=== PATIENT | male | born 1960 | race Caucasian/White ===

== ENCOUNTER 2020-07-31 17:00 | Emergency (ER) | payer SELFPAY ==
--- NOTE | 2020-07-31 17:30 | ER Document Report ---
ED Medical Screen (RME) - General Chief Complaint: Psych Problem Stated Complaint: ANXIOUS,DEPRESSED Time Seen by Provider: 07/31/20 17:25 Notes: HPI: 60-year-old male who reports no prior medical problems other than depression which is an on again off again issue presenting for 2 to 3 months of feeling progressively depressed and anxious. Patient states in the last 2 weeks he has not wanted to leave the house. He is had intermittent thoughts of driving his car off a bridge or walking into the [place] and just keeping on walking. Patient then denies that he would actually harm himself. He denies homicidal ideation. States he has been on medication for depression in the past is not on any medication currently PHYSICAL EXAMINATION: Patient does have a depressed affect. Patient repeatedly denies that he would actually harm himself but does admit to having intermittent thoughts of doing so I have greeted and performed a rapid initial assessment of this patient. A comprehensive ED assessment and evaluation of the patient, analysis of test results and completion of medical decision making process will be conducted by an additional ED providers. - Related Data Allergies/Adverse Reactions: No Known Allergies Allergy (Unverified 07/31/20 17:21) Past Medical History - Social History Chew tobacco use (# tins/day): No Frequency of alcohol use: None Drug Abuse: None Physical Exam - Vital signs Vitals: Temp Pulse Resp BP Pulse Ox 98.3 F 86 18 147/93 H 97 07/31/20 17:10 07/31/20 17:10 07/31/20 17:10 07/31/20 17:10 07/31/20 17:10 Course - Vital Signs Vital signs: Temp Pulse Resp BP Pulse Ox 98.3 F 86 18 147/93 H 97 07/31/20 17:10 07/31/20 17:10 07/31/20 17:10 07/31/20 17:10 07/31/20 17:10
[2020-07-31 19:02] LABS: ABSOLUTE EOSINOPHILS # (AUTO) 0.1 10^3/uL (0.0-0.6); ABSOLUTE LYMPHOCYTES (AUTO) 2.1 10^3/uL (0.5-4.7); ABSOLUTE MONOCYTES (AUTO) 0.5 10^3/uL (0.1-1.4); ABSOLUTE NEUT (AUTO) 5.4 10^3/uL (1.7-8.2); BASOPHILS % (AUTO) 0.2 % (0-2); EOSINOPHILS % (AUTO) 0.7 % (0-6); HEMATOCRIT 46.3 % (37.9-51.0); MEAN CORPUSCULAR HEMOGLOBIN 32.5 pg (27.0-33.4); MEAN CORPUSCULAR HGB CONC 34.7 g/dL (32.0-36.0); MEAN CORPUSCULAR VOLUME 94 fl (80-97); MONOCYTES % (AUTO) 6.2 % (3-13); PLATELET COUNT 144 10^3/uL (150-450); RED BLOOD COUNT 4.94 10^6/uL (4.35-5.55); RED CELL DISTRIBUTION WIDTH 12.6 % (11.5-14.0); SEGMENTED NEUTROPHILS % (AUTO) 66.9 % (42-78); TOTAL CELLS COUNTED % (AUTO) 100 %; WHITE BLOOD COUNT 8.1 10^3/uL (4.0-10.5)
[2020-07-31 19:25] LABS: ALBUMIN 4.7 g/dL (3.5-5.0); ALKALINE PHOSPHATASE 78 U/L (38-126); ANION GAP 5 (5-19); ASPARTATE AMINO TRANSFERASE 27 U/L (17-59); BILIRUBIN,DIRECT 0.1 mg/dL (0.0-0.4); BILIRUBIN,TOTAL 0.5 mg/dL (0.2-1.3); BLOOD UREA NITROGEN 12 mg/dL (7-20); CALCIUM 9.8 mg/dL (8.4-10.2); CARBON DIOXIDE 26 mmol/L (22-30); CHLORIDE 105 mmol/L (98-107); GLUCOSE 96 mg/dL (75-110); POTASSIUM 4.1 mmol/L (3.6-5.0); TOTAL PROTEIN 7.5 g/dL (6.3-8.2)
--- NOTE | 2020-07-31 19:26 | PSYCHOLOGICAL NOTE ---
Psych Note - Psych Note Date seen by psych provider: 07/31/20 Time seen by psych provider: 18:10 - 1825 Psych Note: Reason for Consult:Anxiety, Depression Consent Permissions:none provided Patient arrived to [facility] ED via pov for concerns of anxiety, depression and not sleeping. Patient reports that he recently moved from [place] to [place] for a job. He continued to disclose he is at increased stress which is caused anxiety, sleeping issues, cluster migraines and vertigo. He reports the last time he had this happen to him was about 15 years ago where got to the point it was so bad he started to hallucinate. Patient reports that he did not want to wait until he got that bad so came to [facility] ED in the hope of getting on medication. He reports that last time medication helped him. Patient denies wanting to stating that he is "not wired that way." He reports that he has had passing thoughts that quickly leave him such as "I could just ladle puller at this bridge." Patient states he has more thoughts of going into the [place] and becoming hermit when he is very stressed. Patient is alert and orientated to person, place, time and circumstance. Mood is dysphoric with blunted affect. Patient denies suicidal and homicidal ideations. Delusions are absent and behaviors congruent with an intact reality based presentation i.e. organized and linear thought process. Eye contact is well maintained. Conversational speech is within normal rate, tone and prosody. Intellectual ability appears to be within the average range. Attention and concentration is currently good. Insight, judgment, impulse control appears to be good due to patient recognizing symptoms and coming in due to not wanting it to get significantly worse which he identified occurred 15 years ago. IVC Criteria per [place] GS 122C Dangerous to others Within the relevant past the individual No has inflicted or attempted to inflict or threatened to inflict serious bodily harm on another AND No that there is a reasonable probability that this conduct will be repeated as there is an absence of supervision or structure to prevent. OR No has acted in such a way as to create a substantial risk of serious bodily harm to another AND No that there is a reasonable probability that this conduct will be repeated as there is an absence of supervision or structure to prevent. OR No has engaged in extreme destruction of property AND NO that there is a reasonable probability that this conduct will be repeated as there is an absence of supervision or structure to prevent. Previous episodes of dangerousness to others, when applicable, may be considered when determining reasonable probability of future dangerous conduct. Clear, cogent, and convincing evidence that an individual has committed a homicide in the relevant past is prima facie evidence of dangerousness to others. Dangerous to self Within the relevant past the individual has done any of the following: acted in such a way as to show ALL of the following: No The individual would be unable without care, supervision, and the continued assistance of others not otherwise available, to exercise self- control, judgment, and discretion in the conduct of the individual's daily responsibilities and social relations or to satisfy the individual's need for nourishment, personal or medical care, residential, or self-protection and safety. AND No There is a reasonable probability of the individual suffering serious physical debilitation within the near future unless adequate treatment is given. A showing of behavior that is grossly irrational, of actions that the individual is unable to control, of behavior that is grossly inappropriate to the situation, or of other evidence of severely impaired insight and judgment shall create a prima facie inference that the individual is unable to care for himself or herself. OR No has attempted suicide or threatened suicide AND No that there is a reasonable probability of suicide unless adequate treatment is given as there is an absence of supervision or structure to prevent suicide of patient who has made an attempt, serious gesture or threat. Patient had vague suicidal ideation comment; denies spring means or intent. Reports he thinks about going into the [place] and becoming a hermit. Patient reports random thoughts of pulling over on a bridge with pop into his head briefly, but denies he would ever harm himself; "I am just not wired that way." OR No has mutilated himself or herself or attempted to mutilate himself or herself AND No that there is a reasonable probability of serious self-mutilation unless adequate treatment is given as there is an absence of supervision or structure to prevent. NOTE: Previous episodes of dangerousness to self, when applicable, may be considered when determining reasonable probability of physical debilitation, suicide, or self-mutilation. Medication recommendations per [facility] contracted psychiatrist are as follows: Zyprexa 2.5mg twice daily Impression\\plan: Patient is cleared from acute psychiatric services. Patient is requesting assistance in controlling his breast which is cause increase in anxiety sleeping issues cluster migraines and events of vertigo. Patient reports he has had 1 previous episode 15 years ago which resulted in hallucinations and did not want to wait until he got that bad. Patient is requesting assistance with medication; medication recommendations have been provided. Patient is new to the area and is unaware of what resources are available. Patient has been provided a local resource list of area providers including [facility]'s crisis center and mobile crisis contact information. Patient was also provided local resource list of socioeconomic programs. Patient reports he has no concerns with current plan of care and confirms he will return if new symptoms occur or current symptoms worsen. Patient is recommended to follow-up with outpatient mental health services in 3 to 5 days for both medi cation management therapeutic services. Dr. Bah was consulted to care management of this patient; attending physicians in agreement with recommendations and disposition.
[2020-07-31 19:39] LABS: ACETAMINOPHEN < 10 ug/mL (10-30); ALCOHOL < 10 mg/dL (NONE DETECTED); SALICYLATE < 1.0 mg/dL (2.0-20.0)
[2020-07-31 19:59] LABS: APPEARANCE,URINE CLEAR; BILIRUBIN,URINE NEGATIVE (NEGATIVE); COLOR,URINE STRAW; GLUCOSE, URINE NEGATIVE (NEGATIVE); KETONES,URINE NEGATIVE (NEGATIVE); LEUKOCYTE ESTERASE,URINE NEGATIVE (NEGATIVE); NITRITE,URINE NEGATIVE (NEGATIVE); PROTEIN,URINE NEGATIVE (NEGATIVE); URINE SPECIFIC GRAVITY 1.006; UROBILINOGEN,URINE NEGATIVE mg/dL (<2.0)
[2020-07-31] MEDS ORDERED: OLANZAPINE 2.5 MG TABLET PO ONE (20:16)
[2020-07-31 20:22] LABS: URINE AMPHETAMINES SCREEN NEGATIVE; URINE BENZODIAZEPINES SCREEN NEGATIVE; URINE COCAINE SCREEN NEGATIVE; URINE MARIJUANA (THC) SCREEN NEGATIVE; URINE METHADONE SCREEN NEGATIVE; URINE PHENCYCLIDINE SCREEN NEGATIVE
--- NOTE | 2020-07-31 20:22 | ER Document Report ---
ED General <PATRICK STATON - Last Filed: 07/31/20 20:27> - General Mode of Arrival: Ambulatory Information source: Patient <GERONIMO MARINO - Last Filed: 08/01/20 00:21> - General Chief Complaint: Psych Problem Stated Complaint: ANXIOUS,DEPRESSED Time Seen by Provider: 07/31/20 17:25 Primary Care Provider: [facility] [Outside] - Follow up in 3-5 days [facility] [Outside] - Follow up as needed Notes: This 60-year-old male presents to the emergency department with a complaint of severe anxiety. He states that he has had a history of anxiety in the past but over the past few weeks it has been overwhelming and debilitating. He denies homicidal or suicidal ideation and has presented to the emergency department for medical treatment of the anxiety. (TANYAGERONIMO) - Related Data Allergies/Adverse Reactions: No Known Allergies Allergy (Unverified 07/31/20 17:21) Past Medical History - Social History Smoking Status: Current Every Day Smoker Chew tobacco use (# tins/day): No Frequency of alcohol use: None Drug Abuse: None Family History: Reviewed & Not Pertinent Patient has homicidal ideation: No <GERONIMO MARINO - Last Filed: 08/01/20 00:21> Review of Systems <GERONIMO MARINO - Last Filed: 08/01/20 00:21> - Review of Systems Notes: Constitutional: Negative for fever. HENT: Negative for sore throat. Eyes: Negative for visual changes. Cardiovascular: Negative for chest pain. Respiratory: Negative for shortness of breath. Gastrointestinal: Negative for abdominal pain, vomiting or diarrhea. Genitourinary: Negative for dysuria. Musculoskeletal: Negative for back pain. Skin: Negative for rash. Neurological: Negative for headaches, weakness or numbness. Psychiatric see HPI 10 point ROS negative except as marked above and in HPI. (GERONIMO MARINO) Physical Exam <GERONIMO MARINO - Last Filed: 08/01/20 00:21> - Vital signs Vitals: Temp Pulse Resp BP Pulse Ox 98.3 F 86 18 147/93 H 97 07/31/20 17:10 07/31/20 17:10 07/31/20 17:10 07/31/20 17:10 07/31/20 17:10 - Notes Notes: PHYSICAL EXAMINATION: Physical Exam: General: Well-nourished well-developed in no acute distress HEENT: NC/AT, pupils equal round and reactive to light, MM moist,nares clear, oropharynx clear, airway patent Neck: supple, no adenopathy, no masses. Good range of motion Lungs: clear, no wheezing, no rales no rhonchi CVS: Regular rate and rhythm no murmur gallop or rub Abdomen: Soft, active, nontender, no masses, no hepatosplenomegaly Ext: No edema, clubbing or cyanosis. Neuro: Alert and responsive, moving all 4 extremities on command, cranial nerves intact, no focal findings Skin: Intact no open lesions, no rash PSYCH: + Anxiety, denies suicidal or homicidal ideation, denied visual or auditory hallucinations. (GERONIMO MARINO) Course - Laboratory Result Diagrams: 07/31/20 18:50 07/31/20 18:50 <PATRICK STATON - Last Filed: 07/31/20 20:27> - Laboratory Result Diagrams: 07/31/20 18:50 07/31/20 18:50 - EKG Interpretation by Me Rate: Normal - EKG interpreted by Dr. Marino: Normal sinus rhythm, rate 79, [place] interval 144 ms, QT interval 384 ms, NIVCD, normal axis, no acute ST or T wave abnormalities, no ischemic findings, there are no old EKGs for comparison.. Interpretation abnormal EKG <GERONIMO MARINO - Last Filed: 08/01/20 00:21> - Re-evaluation Re-evalutation: 07/31/20 20:21 Was seen by the behavioral health team in consultation. It is felt that treating the anxiety symptoms with Zyprexa 2.5 mg twice daily with been effective. A prescription is written for Zyprexa 2.5 mg twice daily for 14-day course. Patient will be followed up as an outpatient per instructions. (GERONIMO MARINO) - Vital Signs Vital signs: Temp Pulse Resp BP Pulse Ox 98.1 F 82 20 148/96 H 98 07/31/20 21:00 07/31/20 21:00 07/31/20 21:00 07/31/20 21:00 07/31/20 21:00 - Laboratory Laboratory results interpreted by me: 07/31/20 07/31/20 18:50 18:50 Plt Count 144 L Sodium 135.6 L Salicylates < 1.0 L Acetaminophen < 10 L 07/31/20 20:18 I have reviewed laboratory data and used this information for the treatment decisions regarding the patient. (GERONIMO MARINO) Discharge <PATRICK STATON - Last Filed: 07/31/20 20:27> <GERONIMO MARINO - Last Filed: 08/01/20 00:21> - Discharge Clinical Impression: Anxiety, Sleeping difficulty Condition: Good Disposition: HOME, SELF-CARE Instructions: Anxiety ([facility]) Additional Instructions: You have been evaluated both medical and behavioral teams have been deemed appropriate for discharge. You have been started on Zyprexa 2.5 mg twice daily; please take as directed. You are recommended to follow-up with outpatient mental health services for both medication management therapeutic services. You have been provided a local resource list of area providers including mobile crisis contact information and [facility] phone number. You have also been provided a local resource list of socioeconomic programs. Please make an appointment in the next 3 to 5 days with your chosen outpatient mental health provider. Anxiety The physician feels that some of your health problems are being caused by anxiety. Anxiety affects your health in many ways. Anxiety alone can cause palpitations, sweats, chest pains, abdominal pains, shortness of breath, and headaches. It contributes to ulcer disease, high blood pressure, irritable bowel syndrome, and has been shown to cause flare-ups of many other diseases. Anxiety is not a simple disorder to treat. If the anxiety is due to recent life stresses, you may simply need time to "work through" the changes. If the anxiety is due to an underlying unhappiness with yourself or due to psychiatric disturbance, professional help will be needed. Your physician can refer you for further help if needed. Anti-anxiety medication is occasionally given if the stress is acute or if you are having trouble sleeping. Chronic or frequent use of these medications is not a good idea because the body becomes reliant on it, preventing you from dealing with life's normal stresses. Insomnia Everybody has trouble sleeping now and then. When it becomes a frequent problem, you must look for an underlying cause. Depression can interfere with sleep. Anxiety keeps people from falling asleep, while true depression causes fitful sleep and early awakening. If you think anxiety or depression might be your problem, your doctor can help. Many medicines can interfere with sleep. Try cutting back or eliminating caffeine. Watch out for "energizing" vitamins and herbs! Alcohol interferes powerfully with normal sleep. "Rebound insomnia" results when you stop taking sedating medicines like antihistamines, antianxiety medicine, or sleeping pills. Any medical problem that causes pain or bladder discomfort can interfere with sleep. Discuss any problem you have with your doctor. Get regular exercise. Have regular sleep times. Don't "sleep in." Avoid late afternoon naps. Sleeping pills may be temporarily helpful, but are never a long-term solution. Prescriptions: Olanzapine [Zyprexa 2.5 Mg Tablet] 2.5 mg PO BID #25 tablet Referrals: [facility] [Outside] - Follow up as needed [facility] [Outside] - Follow up in 3-5 days
[2020-07-31 20:24] LABS: URINE BARBITURATES SCREEN UNCONFIRMED POSITIVE
--- NOTE | 2020-07-31 22:10 | EKG REPORT ---
SEVERITY:- ABNORMAL ECG - SINUS RHYTHM NONSPECIFIC INTRAVENTRICULAR CONDUCTION DELAY (RBBB) ABNRM R PROG, CONSIDER ASMI OR LEAD PLACEMENT : Confirmed by: Rosendo Kuhn MD 31-Jul-2020 22:09:50
[2020-08-01 00:20] VITALS: BP 148/96
== END 2020-07-31 21:00 | disposition home or self-care (01) ==
LOC: ER 17:00
DX: F41.9 Anxiety disorder, unspecified (principal); F17.200 Nicotine dependence, unspecified, uncomplicated
CPT/HCPCS: 93005; 99284; 36415; 80307 ×4; 85025; 80053; 81001; 93010; J3490